=== PATIENT | male | born 1960 | race Caucasian/White ===

== ENCOUNTER → 2017-10-18 12:15 | Day surgery (SDC) | payer OTHER ==
[~2017-10-18 12:15] MED LIST: Acetaminophen TAB* 325 MG PO PRN; Atracurium* 10 MG/ML 10 ML VIAL ONE; Atropine 1MG/ML INJ* 1 ML VIAL ONE; Buffered Lidocaine 0.9% SYRIN* 5 ML/SYR SYRINGE INTRADERM ONE; Bupivacaine 0.5% SDV PF* 30ML VIAL ONE; Dexamethasone IV* 4 MG/ML 1 ML (4 MG) ONE; Ibuprofen TAB* 400 MG ONE; Ibuprofen TAB* 400 MG PO ONE; Ketorolac INJ* 30 MG/ML 1 ML VIAL IV PRN; Lidocaine 2% PF * 5 ML VIAL ONE; Metoclopramide TAB* 10 MG ONE; Metoclopramide TAB* 10 MG PO ONE; Naloxone* 0.4 MG/ML 1 ML VIAL IV PRN; Neostigmine Methylsulfate* 1 MG/ML 10 ML VIAL (1 mg/ml) ONE; Ondansetron SYRINGE* 4 MG/2 ML SYRINGE (from 40mg/20ml vial) IV PRN; PROCHLORPERAZINE INJ 5 MG/ML 2 ML VIAL IV PRN; Propofol* 10 MG/ML 20 ML BTL IV PUSH ONE; Sodium Citrate/Citric Acid* 15 ML UDC ONE; Sodium Citrate/Citric Acid* 15 ML UDC PO ONE; ceFAZolin 2 GM PREMIX (*) 2 GM/50 ML BAG IVPB ONE; fentaNYL* 50 MCG/ML 2 ML VIAL (100 MCG VIAL) ONE; oxyCODONE TAB* 5 MG TAB ONE; oxyCODONE TAB* 5 MG TAB PO PRN
[2017-10-18] MEDS: fentaNYL* 50 MCG/ML 2 ML VIAL (100 MCG VIAL) IV PRN ×3 (15:55→16:29)
--- NOTE | 2017-10-18 16:14 | OP ---
Operative Report - Blank - Operative Report Date of Operation: 10/18/17 Note: Brief Operative Note Preop Dx: spigelian hernia Postop Dx: same Procedure: laparoscopic hernia repair (primary) Anesthesia: GET Surgeon: Orestes Cafeteria Operator: Shazia Calderon Fluids: 750ml LR EBL: less than 20cc Specimen: none Drains: none Findings: dictated
[2017-10-18 17:48] VITALS: BP 105/69
--- NOTE | 2017-11-11 03:54 | OP ---
CC: Taj Hayes MD * DATE OF OPERATION: 10/18/17 - SDS DATE OF : 58 SURGEON: Alex Carlisle MD BUSINESS PROCESS ASSOCIATE: LIANE Cassidy ANESTHESIA: General endotracheal. PRE-OP DIAGNOSIS: Right-sided spigelian hernia. POST-OP DIAGNOSIS: Right-sided spigelian hernia. OPERATIVE PROCEDURE: Laparoscopic repair of right-sided spigelian hernia. ESTIMATED BLOOD LOSS: Minimal. IV FLUIDS: Crystalloid. SPECIMENS: None. DRAINS: None. COMPLICATIONS: None. COUNTS: Instrument, needle, and sponge counts correct. DESCRIPTION OF PROCEDURE: The patient was brought to the operating room and placed on the table supine. Sequential compression devices were placed on both lower extremities. General anesthesia was administered. The abdomen was prepped and draped in the usual sterile fashion and time-out was performed. Local anesthetic was infiltrated into the skin and soft tissue prior to making each incision. Pneumoperitoneum was achieved through a transumbilical placement of Veress needle with insufflation of carbon dioxide to a pressure of 15 mmHg. Optical trocar was used to access the peritoneal cavity. Using 5-mm trocars, the trocars were placed toward the left side to evaluate the right- sided abdominal wall hernia. There was omentum extending up into the right- sided spigelian hernia and this was reduced. The peritoneum was incised toward the midline and dissected free and additional fat within the hernia sac was removed with the hernia sac. The hernia defect itself was quite small, only about 1 to 2 cm and this was able to be closed primarily with 0 Ethibond sutures closing this with interrupted laparoscopic suturing techniques. After completing the hernia closure, the ports were removed under direct visualization and carbon dioxide was released. The wounds were closed with 4-0 Monocryl in a subcuticular fashion and Steri-Strips were applied. The patient tolerated the procedure well, was extubated and transferred to Recovery in stable condition. [id number]/[facility] #: [id number] [facility]AT[facility] CENTERMaribell
== END | disposition home or self-care (01) ==
LOC: OR 12:15
PROVIDERS: ATTEND Surgery
DX: K43.9 Ventral hernia without obstruction or gangrene (principal); K44.9 Diaphragmatic hernia without obstruction or gangrene; N40.0 Benign prostatic hyperplasia without lower urinary tract symptoms; G57.10 Meralgia paresthetica, unspecified lower limb
CPT/HCPCS: A9270-GY; J0461; J0690; J1100; J2704; J2710; J3010

== ENCOUNTER 2020-01-27 20:10 | Observation (INO) ==
[2020-01-27] MEDS ORDERED: Morphine 4 MG/ML VIAL (1 ml) IV ONE (20:27)
[2020-01-27] MEDS ORDERED: Ondansetron 4 mg VIAL 2 MG/ML 2 ml VIAL IV ONE (20:27)
[2020-01-27 21:04] LABS: ABS Basophils 0.1 10^3/ul (0-0.2); ABS Eosinophils 0.1 10^3/ul (0-0.6); ABS Lymphocytes 1.9 10^3/ul (1.0-4.8); ABS Neutrophils 9.4 10^3/ul (1.5-7.7); Eosinophil % 0.5 %; Hematocrit 53 % (42-52); Hemoglobin 18.6 g/dL (14.0-18.0); Mean Corpuscular HGB Conc 35 g/dL (31-36); Mean Corpuscular Hemoglobin 33 pg (27-31); Mean Corpuscular Volume 93 fL (80-94); Mean Platelet Volume 8.6 fL (7.4-10.4); Nucleated Red Blood Cells % 0.1; Platelet Count 214 10^3/uL (150-450); Red Cell Distribution Width 13 % (10-15); White Blood Count 12.4 10^3/uL (3.5-10.8)
[2020-01-27 21:23] LABS: Albumin 4.5 g/dL (3.2-5.2); Albumin/Globulin Ratio 1.7 (1-3); BUN/Creatinine Ratio 14.9 (8-20); C Reactive Protein 3.5 mg/L (<8.01); Calcium 9.9 mg/dL (8.6-10.3); EGFR African American 99.1 (>60); EGFR Non-African American 81.9 (>60); Globulin 2.7 g/dL (2-4); Total Bilirubin 1.2 mg/dL (0.2-1.0); Total Protein 7.2 g/dL (6.4-8.9)
[2020-01-27] MEDS ORDERED: Morphine 4 MG/ML VIAL (1 ml) IV PRN (23:02)
[2020-01-27] MEDS ORDERED: Famotidine IV 10 MG/ML 2 ml VIAL (20 mg) IV SLOW PU ONE (23:03)
[2020-01-28] MEDS ORDERED: Iohexol 300 (CONTRAST) 10 ML SDV IV ONE (00:58)
[2020-01-28 02:03] LABS: Urine Appearance Cloudy; Urine Bilirubin Negative (Negative); Urine Blood Negative (Negative); Urine Color Yellow; Urine Glucose Negative (Negative); Urine Ketones Negative (Negative); Urine Nitrite Negative (Negative); Urine Protein Negative (Negative); Urine Urobilinogen Negative (Negative)
[2020-01-28] MEDS ORDERED: Ondansetron 4 mg VIAL 2 MG/ML 2 ml VIAL ONE (02:43)
[2020-01-28] MEDS ORDERED: Morphine 2 MG/ML SYRINGE IV PRN (02:46)
[2020-01-28] MEDS: NS 0.9% 1000 ml BAG 1,000 ML IV SCH ×4 (03:21→23:04)
[2020-01-28] MEDS: Ondansetron 4 mg VIAL 2 MG/ML 2 ml VIAL IV PRN ×2 (06:09→10:22)
[2020-01-28] MEDS ORDERED: Metoclopramide 5 MG/ML VIAL (10 mg) IV SLOW PU PRN (09:25)
[2020-01-29 06:41] LABS: BUN/Creatinine Ratio 18.3 (8-20); Calcium 8.2 mg/dL (8.6-10.3); EGFR Non-African American 95.8 (>60)
[2020-01-29] MEDS: NS 0.9% 1000 ml BAG 1,000 ML IV SCH (06:53)
[2020-01-29 07:23] LABS: ABS Eosinophils 0.3 10^3/ul (0-0.6); ABS Lymphocytes 2.7 10^3/ul (1.0-4.8); ABS Monocytes 0.8 10^3/ul (0-0.8); ABS Neutrophils 5.4 10^3/ul (1.5-7.7); Hematocrit 43 % (42-52); Lymphocyte % 29.4 %; Mean Corpuscular HGB Conc 35 g/dL (31-36); Mean Corpuscular Hemoglobin 34 pg (27-31); Mean Corpuscular Volume 96 fL (80-94); Mean Platelet Volume 9.2 fL (7.4-10.4); Nucleated Red Blood Cells % 0.2; Platelet Count 155 10^3/uL (150-450); Red Blood Count 4.48 10^6 /uL (4.18-5.48); Red Cell Distribution Width 13 % (10-15); White Blood Count 9.2 10^3/uL (3.5-10.8)
[2020-01-29 08:29] LABS: Albumin 3.1 g/dL (3.2-5.2); Albumin/Globulin Ratio 1.6 (1-3); Indirect Bilirubin 0.8 mg/dL (0.3-1.0); Total Protein 5.1 g/dL (6.4-8.9)
[2020-01-30 11:37] VITALS: BP 126/53
== END 2020-01-30 11:30 | disposition home or self-care (01) ==
LOC: ED 20:10 → SSU 20:10
PROVIDERS: ADMIT Internal Medicine; ATTEND Internal Medicine

== ENCOUNTER 2020-02-05 09:46 | Observation (INO) ==
[2020-02-05 10:28] LABS: ABS Eosinophils 0.1 10^3/ul (0-0.6); ABS Monocytes 0.5 10^3/ul (0-0.8); ABS Neutrophils 4.6 10^3/ul (1.5-7.7); Eosinophil % 1.1 %; Hematocrit 50 % (42-52); Hemoglobin 17.5 g/dL (14.0-18.0); Lymphocyte % 27.6 %; Mean Corpuscular HGB Conc 35 g/dL (31-36); Mean Corpuscular Hemoglobin 33 pg (27-31); Mean Corpuscular Volume 94 fL (80-94); Mean Platelet Volume 8.7 fL (7.4-10.4); Nucleated Red Blood Cells % 0.1; Platelet Count 206 10^3/uL (150-450); Red Blood Count 5.31 10^6 /uL (4.18-5.48); Red Cell Distribution Width 12 % (10-15); White Blood Count 7.2 10^3/uL (3.5-10.8)
[2020-02-05 10:45] LABS: Anion Gap 6 mmol/L (2-11); Blood Urea Nitrogen 10 mg/dL (6-24); CO2 Carbon Dioxide 28 mmol/L (22-32); Chloride 104 mmol/L (101-111); Glucose 108 mg/dL (70-100); INR 1.07 (0.82-1.09); Potassium 3.8 mmol/L (3.5-5.0); Sodium 138 mmol/L (135-145)
[2020-02-05 10:46] LABS: ALT 28 U/L (7-52); AST 15 U/L (13-39); Albumin 3.8 g/dL (3.2-5.2); Albumin/Globulin Ratio 1.7 (1-3); Alkaline Phosphatase 40 U/L (34-104); Calcium 9.2 mg/dL (8.6-10.3); EGFR African American 102.8 (>60); Globulin 2.3 g/dL (2-4); Total Protein 6.1 g/dL (6.4-8.9)
[2020-02-05 11:16] LABS: Alcohol, S < 10 mg/dL (<10)
[2020-02-05 11:22] LABS: Urine Appearance Clear; Urine Bilirubin Negative (Negative); Urine Blood Negative (Negative); Urine Color Straw; Urine Glucose Negative (Negative); Urine Ketones Negative (Negative); Urine Nitrite Negative (Negative); Urine Protein Negative (Negative); Urine Specific Gravity 1.002 (1.010-1.030); Urine Urobilinogen Negative (Negative)
[2020-02-05 11:29] LABS: TSH Ultra Thyroid Stim Horm 1.61 mcIU/mL (0.34-5.60)
[2020-02-05] MEDS ORDERED: Senna TAB 8.6 mg TAB PO PRN (12:12)
[2020-02-05] MEDS ORDERED: Ondansetron 4 mg VIAL 2 MG/ML 2 ml VIAL IV PRN (12:12)
[2020-02-05] MEDS ORDERED: Iohexol 350 (CONTRAST) 500 ML MDV IV ONE (12:42)
[2020-02-05 14:16] LABS: Hepatitis C Antibody Negative (Negative)
[2020-02-05 23:12] LABS: Vitamin B12 707 pg/mL (180-914)
[2020-02-06 07:11] LABS: Albumin 3.4 g/dL (3.2-5.2); Albumin/Globulin Ratio 1.7 (1-3); Calcium 9.2 mg/dL (8.6-10.3); EGFR African American 92.2 (>60); EGFR Non-African American 76.2 (>60); HDL Cholesterol 40.5 mg/dL; Potassium 4.4 mmol/L (3.5-5.0); Total Bilirubin 0.7 mg/dL (0.2-1.0); Total Protein 5.4 g/dL (6.4-8.9)
[2020-02-06] MEDS ORDERED: Fluticasone NASAL SPRAY 50MCG 16 gm SPRAY BTL BOTH NARES SCH (09:00)
[2020-02-06 15:39] VITALS: BP 105/70
== END 2020-02-06 17:20 | disposition home or self-care (01) ==
LOC: ED 09:46 → MEDTELE 09:46
PROVIDERS: ADMIT Pediatrics; ATTEND Hospitalist